=== PATIENT | female | born 1960 | race Hispanic/Latino ===

== ENCOUNTER 2020-05-29 09:06 | Observation (INO) | payer BC, OTHER ==
[~2020-05-29] VITALS: Ht 154.9 cm; Wt 64.9 kg
[2020-05-29] MEDS ORDERED: ASPIRIN 81 MG CHEW TAB PO ONE ×2 (09:15→11:15)
[2020-05-29] MEDS ORDERED: KETOROLAC TROMETHAMINE 30 MG/ML VIAL IV STA (09:39)
[2020-05-29] MEDS ORDERED: METHOCARBAMOL750 MG PO (10:13)
[2020-05-29] MEDS ORDERED: METFORMIN HCL500 MG PO (10:13)
[2020-05-29] MEDS ORDERED: SODIUM CHLORIDE 0.9% 100 ML ONE (10:14)
[2020-05-29] MEDS ORDERED: IOPAMIDOL 370 MG/ML 200 ML INFUS..BTL INJ ONE (10:14)
[2020-05-29 10:25] LABS: BASOPHILS % 0.3 % (0.0-1.0); EOSINOPHILS % 0.1 % (0.0-6.0); HEMOGLOBIN 12.6 g/dL (12.0-16.0); LYMPHOCYTES # (AUTO) 1.9 (1.0-3.2); LYMPHOCYTES % 24.7 % (18.0-39.1); MEAN CORPUSCULAR HEMOGLOBIN 30.5 pg (28-32); MEAN CORPUSCULAR HGB CONC 34.1 g/dL (31-35); MEAN CORPUSCULAR VOLUME 89.6 fL (81-99); MONOCYTES # (AUTO) 0.6 (0.2-0.8); MONOCYTES % 7.2 % (4.4-11.3); NEUTROPHILS # (AUTO) 5.2 (2.1-6.9); NEUTROPHILS % 67.4 % (38.7-80.0); PLATELET COUNT 187 x10e3/uL (140-360); RED BLOOD COUNT 4.13 x10e6/uL (3.6-5.1); RED CELL DISTRIBUTION WIDTH 12.4 % (11.7-14.4)
[2020-05-29 10:52] LABS: ALANINE AMINOTRANSFERASE 17 IU/L (0-55); ALKALINE PHOSPHATASE 64 IU/L (40-150); BLOOD UREA NITROGEN 12 mg/dL (7-26); BUN/CREATININE RATIO 17 (6-25); CALCIUM 8.8 mg/dL (8.4-10.2); CARBON DIOXIDE 20 mmol/L (22-29); CHLORIDE 104 mmol/L (98-107); CREATINE KINASE 80 IU/L (29-168); EST GLOMERULAR FILTRATION RATE > 60 ML/MIN (60-); GLUCOSE 140 mg/dL (74-118); SODIUM 137 mmol/L (136-145)
[2020-05-29] MEDS: SODIUM CHLORIDE 0.9% 1000ML 1,000 ML IV SCH ×2 (11:47→20:37)
[2020-05-29 13:43] VITALS: BP 110/62
[2020-05-29] MEDS ORDERED: VITAMIN A10000 UNIT PO (14:44)
[2020-05-29] MEDS ORDERED: BIOTIN10000 MCG PO (14:44)
[2020-05-29] MEDS ORDERED: VITAMIN D310 MCG (14:44)
[2020-05-29 16:00] VITALS: BP 125/63
[2020-05-29] MEDS ORDERED: KETOROLAC TROMETHAMINE 30 MG/ML VIAL IM PRN (17:30)
[2020-05-29] MEDS ORDERED: DEXTROSE 50% SYRINGE 50 ML IV PRN (17:30)
[2020-05-29] MEDS: INSULIN LISPRO 100 UNIT/1 ML 3ML VIAL SQ SCH ×2 (17:40→20:37)
[2020-05-29] MEDS ORDERED: KETOROLAC TROMETHAMINE 30 MG/ML VIAL IV PRN (17:45)
[2020-05-29 19:52] LABS: CREATINE KINASE MB 0.3 ng/mL (0-5.0)
[2020-05-29 20:00] VITALS: BP 110/59
[2020-05-29 21:00] VITALS: BP 110/59
[2020-05-30] VITALS (7 sets, daily range): BP systolic 99–135; BP diastolic 55–72
[2020-05-30] MEDS: HYDROCODONE/APAP 5MG-325MG TAB PO PRN ×2 (00:09→09:31)
[2020-05-30] MEDS: SODIUM CHLORIDE 0.9% 1000ML 1,000 ML IV SCH ×3 (03:01→17:15)
[2020-05-30 05:11] LABS: BASOPHILS % 0.2 % (0.0-1.0); EOSINOPHILS # (AUTO) 0.2 (0.0-0.4); EOSINOPHILS % 3.3 % (0.0-6.0); HEMATOCRIT 31.2 % (34.2-44.1); HEMOGLOBIN 10.4 g/dL (12.0-16.0); LYMPHOCYTES # (AUTO) 2.2 (1.0-3.2); LYMPHOCYTES % 39.9 % (18.0-39.1); MEAN CORPUSCULAR HEMOGLOBIN 30.7 pg (28-32); MEAN CORPUSCULAR HGB CONC 33.3 g/dL (31-35); MONOCYTES # (AUTO) 0.5 (0.2-0.8); MONOCYTES % 8.9 % (4.4-11.3); NEUTROPHILS # (AUTO) 2.6 (2.1-6.9); NEUTROPHILS % 47.5 % (38.7-80.0); PLATELET COUNT 159 x10e3/uL (140-360); RED BLOOD COUNT 3.39 x10e6/uL (3.6-5.1); RED CELL DISTRIBUTION WIDTH 12.8 % (11.7-14.4)
[2020-05-30 05:34] LABS: ALANINE AMINOTRANSFERASE 13 IU/L (0-55); ALKALINE PHOSPHATASE 51 IU/L (40-150); ANION GAP 11.9 mmol/L (8-16); BLOOD UREA NITROGEN 14 mg/dL (7-26); BUN/CREATININE RATIO 22 (6-25); CALCIUM 7.6 mg/dL (8.4-10.2); CARBON DIOXIDE 21 mmol/L (22-29); CHLORIDE 111 mmol/L (98-107); CREATININE, SERUM 0.65 mg/dL (0.57-1.11); EST GLOMERULAR FILTRATION RATE > 60 ML/MIN (60-); GLUCOSE 137 mg/dL (74-118); POTASSIUM 3.9 mmol/L (3.5-5.1); SODIUM 140 mmol/L (136-145)
[2020-05-30 05:55] LABS: CREATINE KINASE MB 0.4 ng/mL (0-5.0)
[2020-05-30] MEDS: INSULIN LISPRO 100 UNIT/1 ML 3ML VIAL SQ SCH ×4 (08:51→21:00)
[2020-05-30] MEDS ORDERED: ENOXAPARIN SOD INJ 60 MG/0.6 ML SYR SC SCH (12:45)
[2020-05-30] MEDS: ENOXAPARIN SOD INJ 40 MG/0.4 ML SYR SC SCH (13:31)
[2020-05-30] MEDS: PREGABALIN 75 MG CAP PO SCH (16:49)
[2020-05-31] VITALS (7 sets, daily range): BP systolic 106–124; BP diastolic 65–74
[2020-05-31] MEDS: SODIUM CHLORIDE 0.9% 1000ML 1,000 ML IV SCH ×3 (03:15→16:40)
[2020-05-31] MEDS: PREGABALIN 75 MG CAP PO SCH ×2 (07:40→16:40)
[2020-05-31] MEDS: HYDROCODONE/APAP 5MG-325MG TAB PO PRN (07:41)
[2020-05-31] MEDS: INSULIN LISPRO 100 UNIT/1 ML 3ML VIAL SQ SCH ×3 (07:42→16:43)
[2020-05-31] MEDS ORDERED: IBUPROFEN 400 MG TAB PO PRN (14:15)
[2020-05-31] MEDS: ENOXAPARIN SOD INJ 40 MG/0.4 ML SYR SC SCH (16:40)
[2020-05-31] MEDS ORDERED: LYRICA75 MG PO (19:13)
== END 2020-05-31 20:31 | disposition home or self-care (01) ==
LOC: ER 09:08 → ERHOLD 11:24 → IMCU 13:05
PROVIDERS: ADMIT Internal Medicine; ATTEND Internal Medicine
DX: S70.11XA Contusion of right thigh, initial encounter (principal); R20.8 Other disturbances of skin sensation; M25.551 Pain in right hip; E11.9 Type 2 diabetes mellitus without complications; Z88.5 Allergy status to narcotic agent; M70.62 Trochanteric bursitis, left hip; Z79.84 Long term (current) use of oral hypoglycemic drugs; Z20.822 Contact with and (suspected) exposure to COVID-19
CPT/HCPCS: 36415 ×3; 70450; 70496; 71045; 72141; 72148; 73502; 73721; 80053 ×2; 82550 ×2; 82553 ×2; 82948 ×3; 83880; 84484 ×2; 85025 ×2; 93005; 93306; 96360; 96361 ×3; 99284; G0378 ×3; J1650 ×2; J1885; J7030 ×3; J7050; Q9967; U0002